=== PATIENT | female | born 2000 | race Two or more races ===

== ENCOUNTER 2021-08-03 11:37 | Emergency (ER) | payer MEDICAID ==
[~2021-08-03] VITALS: Ht 177.8 cm; Wt 74.0 kg
[2021-08-03 11:40] VITALS: BP 105/75
[2021-08-03] MEDS ORDERED: IBUPROFEN 600MG TABLET PO ONE (12:15)
[2021-08-03] MEDS ORDERED: IBUP-2029 MT (12:37)
== END 2021-08-03 13:44 | disposition home or self-care (01) ==
LOC: ER 11:37
DX: S16.1XXA Strain of muscle, fascia and tendon at neck level, initial encounter (principal); X58.XXXA Exposure to other specified factors, initial encounter; Y93.89 Activity, other specified; Y92.89 Other specified places as the place of occurrence of the external cause; Y99.8 Other external cause status
CPT/HCPCS: 81025; 99283

== ENCOUNTER 2023-02-10 03:45 | Emergency (ER) | payer MEDICAID, OTHER ==
[~2023-02-10] VITALS: Ht 165.1 cm; Wt 73.0 kg
[~2023-02-10 03:45] MED LIST: IBUP-2029 MT
[2023-02-10 04:09] VITALS: TEMP 98.1; O2SAT 100
[2023-02-10 05:45] VITALS: BP 121/81; PULSE 80; RESP 16
[2023-02-10] MEDS ORDERED: KETOROLAC 30MG/ML VIAL IV ONE (05:45)
[2023-02-10 07:18] LABS: BASOPHILS % 0.4 % (0.0-2.0); EOSINOPHILS % 0.5 % (0.0-5.0); HEMATOCRIT. 30.5 % (36.0-48.0); HEMOGLOBIN. 9.5 g/dL (12.0-16.0); LYMPHOCYTES % 12.6 % (20.0-50.0); MEAN CORPUSCULAR HEMOGLOBIN 19.2 pg (28.0-32.0); MEAN CORPUSCULAR HGB CONC 31.1 g/dL (31.0-37.0); MEAN CORPUSCULAR VOLUME 61.8 fL (81.0-99.0); MONOCYTES % 4.9 % (2.0-8.0); NEUTROPHILS % 81.6 % (40.0-76.0); PLATELET 356 x1000/uL (130-400); RED BLOOD CELL COUNT 4.94 mill/uL (4.2-5.4); RED CELL DISTRIBUTION WIDTH 21.2 % (11.6-14.6); WHITE BLOOD COUNT 12.5 x1000/uL (4.5-11.0)
[2023-02-10 07:27] LABS: ADD RBC MORPHOLOGY YES; DIFFERENTIAL COMMENT 1
[2023-02-10 08:00] LABS: ANISOCYTOSIS 2+; HYPOCHROMASIA 1+; MICROCYTOSIS 3+; PLATELET ESTIMATE NORMAL
[2023-02-10 08:04] LABS: HCG SCREEN NEGATIVE
[2023-02-10 08:07] LABS: ALANINE AMINOTRANSFERASE 10 IU/L (10-49); ALBUMIN 4.2 g/dL (3.2-4.8); ASPARTATE AMINOTRANSFERASE 18 IU/L (<34); BILIRUBIN TOTAL 0.6 mg/dL (0.1-1.0); CALCIUM 9.5 mg/dL (8.7-10.4); CARBON DIOXIDE 24 mEq/L (21-32); CHLORIDE 106 mEq/L (98-107); CREATININE 0.7 mg/dL (0.6-1.0); GLUCOSE 94 mg/dL (70-105); POTASSIUM 3.8 mEq/L (3.5-5.1); PROTEIN TOTAL 7.2 g/dL (6.0-8.3); SODIUM 138 mEq/L (136-145)
[2023-02-10 08:17] LABS: TROPONIN I HIGH SENSITIVITY < 4 ng/L (3.0-34); UREA NITROGEN BLOOD < 5 mg/dL (9-23)
== END 2023-02-10 08:35 | disposition home or self-care (01) ==
LOC: ER 03:45
DX: R07.9 Chest pain, unspecified (principal); F12.90 Cannabis use, unspecified, uncomplicated
CPT/HCPCS: 36415; 71045; 80053; 81025; 83880; 84484; 84703; 85025; 93005; 99285

== ENCOUNTER 2023-02-15 22:34 | Emergency (ER) | payer OTHER ==
[~2023-02-15] VITALS: Ht 167.6 cm; Wt 82.0 kg
[2023-02-15 22:52] VITALS: O2SAT 100
[2023-02-16] MEDS ORDERED: ACETAMINOPHEN 325MG TABLET PO STA (00:21)
[2023-02-16] MEDS ORDERED: IBUP-2028 MT (02:51)
[2023-02-16 03:10] VITALS: BP 117/73; PULSE 74; RESP 14; TEMP 99.1
== END 2023-02-16 03:21 | disposition home or self-care (01) ==
LOC: ER 22:34
DX: M94.0 Chondrocostal junction syndrome [Tietze] (principal)
CPT/HCPCS: 71045; 81025; 99283

== ENCOUNTER 2023-03-07 00:42 | Emergency (ER) | payer MEDICAID, OTHER ==
[~2023-03-07] VITALS: Ht 180.3 cm; Wt 122.0 kg
[~2023-03-07 00:42] MED LIST changes: +IBUP-2028 MT
[2023-03-07 01:16] VITALS: BP 120/77; PULSE 91; RESP 16; TEMP 98.2; O2SAT 100
[2023-03-07 01:16] LABS: BASOPHILS % 0.4 % (0.0-2.0); EOSINOPHILS % 1.4 % (0.0-5.0); HEMATOCRIT. 31.3 % (36.0-48.0); LYMPHOCYTES % 25.6 % (20.0-50.0); MEAN CORPUSCULAR HEMOGLOBIN 20.3 pg (28.0-32.0); MEAN CORPUSCULAR HGB CONC 31.9 g/dL (31.0-37.0); MEAN CORPUSCULAR VOLUME 63.8 fL (81.0-99.0); MEAN PLATELET VOLUME 9.5 fl (7.4-10.4); MONOCYTES % 8.8 % (2.0-8.0); NEUTROPHILS % 63.8 % (40.0-76.0); PLATELET 366 x1000/uL (130-400); RED CELL DISTRIBUTION WIDTH 22.1 % (11.6-14.6); WHITE BLOOD COUNT 14.3 x1000/uL (4.5-11.0)
[2023-03-07 01:26] LABS: ADD RBC MORPHOLOGY YES; DIFFERENTIAL COMMENT 1
[2023-03-07 01:30] LABS: ALANINE AMINOTRANSFERASE < 7 IU/L (10-49); ALBUMIN 4.1 g/dL (3.2-4.8); ASPARTATE AMINOTRANSFERASE 11 IU/L (<34); BILIRUBIN TOTAL 0.2 mg/dL (0.1-1.0); CALCIUM 9.4 mg/dL (8.7-10.4); CARBON DIOXIDE 28 mEq/L (21-32); CHLORIDE 106 mEq/L (98-107); CREATININE 0.7 mg/dL (0.6-1.0); GLUCOSE 111 mg/dL (70-105); PROTEIN TOTAL 7.4 g/dL (6.0-8.3); SODIUM 140 mEq/L (136-145); UREA NITROGEN BLOOD 7 mg/dL (9-23)
[2023-03-07 01:41] LABS: HCG SCREEN NEGATIVE
[2023-03-07 02:13] LABS: CLARITY URINE CLEAR (CLEAR); COLOR URINE YELLOW (YELLOW); GLUCOSE URINE NEGATIVE (NEGATIVE); KETONES URINE NEGATIVE (NEGATIVE); LEUKOCYTE ESTERASE URINE NEGATIVE (NEGATIVE); NITRITE URINE NEGATIVE (NEGATIVE); OCCULT BLOOD URINE NEGATIVE (NEGATIVE); PROTEIN URINE NEGATIVE (NEGATIVE); SPECIFIC GRAVITY URINE 1.017 (1.005-1.030); UROBILINOGEN URINE 0.2 E.U./dL (0.2-1.0)
[2023-03-07 02:14] LABS: HYPOCHROMASIA 1+; MICROCYTOSIS 1+; PLATELET ESTIMATE NORMAL
== END 2023-03-07 08:07 | disposition home or self-care (01) ==
LOC: ER 00:42
DX: R10.12 Left upper quadrant pain (principal)
CPT/HCPCS: 36415; 80053; 81003; 81025; 84703; 85025; 99283

== ENCOUNTER 2023-03-15 08:01 | Emergency (ER) | payer OTHER ==
[~2023-03-15] VITALS: Ht 170.2 cm; Wt 70.0 kg
[2023-03-15 08:03] VITALS: O2SAT 99
[2023-03-15] MEDS ORDERED: ACETAMINOPHEN 325MG TABLET PO ONE (09:00)
[2023-03-15 09:18] LABS: BASOPHILS % 0.7 % (0.0-2.0); EOSINOPHILS % 0.9 % (0.0-5.0); HEMATOCRIT. 32.2 % (36.0-48.0); HEMOGLOBIN. 9.9 g/dL (12.0-16.0); LYMPHOCYTES % 15.4 % (20.0-50.0); MEAN CORPUSCULAR HEMOGLOBIN 19.5 pg (28.0-32.0); MEAN CORPUSCULAR HGB CONC 30.6 g/dL (31.0-37.0); MEAN CORPUSCULAR VOLUME 63.5 fL (81.0-99.0); MEAN PLATELET VOLUME 9.4 fl (7.4-10.4); MONOCYTES % 5.1 % (2.0-8.0); NEUTROPHILS % 77.9 % (40.0-76.0); PLATELET 341 x1000/uL (130-400); RED BLOOD CELL COUNT 5.07 mill/uL (4.2-5.4); RED CELL DISTRIBUTION WIDTH 21.6 % (11.6-14.6); WHITE BLOOD COUNT 12.2 x1000/uL (4.5-11.0)
[2023-03-15 09:31] LABS: ADD RBC MORPHOLOGY YES; DIFFERENTIAL COMMENT 1
[2023-03-15 09:38] LABS: ALANINE AMINOTRANSFERASE < 7 IU/L (10-49); ALBUMIN 4.1 g/dL (3.2-4.8); ASPARTATE AMINOTRANSFERASE 11 IU/L (<34); BILIRUBIN TOTAL 0.4 mg/dL (0.1-1.0); CALCIUM 9.3 mg/dL (8.7-10.4); CARBON DIOXIDE 29 mEq/L (21-32); CHLORIDE 105 mEq/L (98-107); CREATININE 0.6 mg/dL (0.6-1.0); GLUCOSE 99 mg/dL (70-105); POTASSIUM 3.8 mEq/L (3.5-5.1); PROTEIN TOTAL 7.5 g/dL (6.0-8.3); SODIUM 139 mEq/L (136-145); UREA NITROGEN BLOOD 6 mg/dL (9-23)
[2023-03-15 09:42] LABS: HCG SCREEN NEGATIVE
[2023-03-15 09:52] LABS: B-HCG QUANTITATIVE 2 mIU/mL (<3)
[2023-03-15 10:36] LABS: ANISOCYTOSIS 2+; HYPOCHROMASIA 2+; MICROCYTOSIS 2+; PLATELET ESTIMATE NORMAL; TARGET CELLS 1+
[2023-03-15 10:54] LABS: UCG SCREEN NEGATIVE
[2023-03-15 10:55] LABS: CLARITY URINE CLEAR (CLEAR); COLOR URINE YELLOW (YELLOW); GLUCOSE URINE NEGATIVE (NEGATIVE); KETONES URINE NEGATIVE (NEGATIVE); LEUKOCYTE ESTERASE URINE 2+ (NEGATIVE); NITRITE URINE NEGATIVE (NEGATIVE); OCCULT BLOOD URINE NEGATIVE (NEGATIVE); PROTEIN URINE NEGATIVE (NEGATIVE); SPECIFIC GRAVITY URINE 1.009 (1.005-1.030); UROBILINOGEN URINE 0.2 E.U./dL (0.2-1.0)
[2023-03-15 11:15] LABS: SQUAMOUS EPITHELIAL CELL URINE 3+ /lpf (RARE/1+)
[2023-03-15 11:16] LABS: BACTERIA URINE TRACE; RBC URINE NONE SEEN /hpf (0-2)
[2023-03-15 12:07] VITALS: BP 126/76; PULSE 82; RESP 17; TEMP 98.3
[2023-03-19 04:07] LABS: CHLAMYDIA TRACHOMATIS NAA Negative (Negative); NEISSERIA GONORRHOEAE NAA Negative (Negative)
== END 2023-03-15 13:01 | disposition home or self-care (01) ==
LOC: ER 08:13
DX: N83.202 Unspecified ovarian cyst, left side (principal); N39.0 Urinary tract infection, site not specified
CPT/HCPCS: 87491; 87591; 80053; 81003; 81025; 84703; 84702; 85025; 36415; 76830; 76856; 99284; Z7610

== ENCOUNTER 2023-04-11 18:35 | Emergency (ER) | payer OTHER ==
[~2023-04-11] VITALS: Ht 177.8 cm; Wt 113.0 kg
[2023-04-11 18:37] VITALS: BP 145/80; PULSE 108; RESP 20; TEMP 98.9; O2SAT 99
[2023-04-11 20:16] LABS: BASOPHILS % 0.5 % (0.0-2.0); HEMATOCRIT. 33.4 % (36.0-48.0); HEMOGLOBIN. 10.2 g/dL (12.0-16.0); LYMPHOCYTES % 24.1 % (20.0-50.0); MEAN CORPUSCULAR HEMOGLOBIN 19.5 pg (28.0-32.0); MEAN CORPUSCULAR HGB CONC 30.7 g/dL (31.0-37.0); MEAN CORPUSCULAR VOLUME 63.7 fL (81.0-99.0); MEAN PLATELET VOLUME 9.6 fl (7.4-10.4); MONOCYTES % 5.5 % (2.0-8.0); NEUTROPHILS % 68.9 % (40.0-76.0); PLATELET 357 x1000/uL (130-400); RED BLOOD CELL COUNT 5.25 mill/uL (4.2-5.4); RED CELL DISTRIBUTION WIDTH 20.5 % (11.6-14.6); WHITE BLOOD COUNT 18.8 x1000/uL (4.5-11.0)
[2023-04-11 20:18] LABS: ALANINE AMINOTRANSFERASE < 7 IU/L (10-49); ALBUMIN 4.2 g/dL (3.2-4.8); ASPARTATE AMINOTRANSFERASE 10 IU/L (<34); BILIRUBIN TOTAL 0.3 mg/dL (0.1-1.0); CALCIUM 9.4 mg/dL (8.7-10.4); CARBON DIOXIDE 23 mEq/L (21-32); CHLORIDE 103 mEq/L (98-107); CREATININE 0.8 mg/dL (0.6-1.0); GLUCOSE 108 mg/dL (70-105); POTASSIUM 3.8 mEq/L (3.5-5.1); PROTEIN TOTAL 8.1 g/dL (6.0-8.3); SODIUM 135 mEq/L (136-145); UREA NITROGEN BLOOD 10 mg/dL (9-23)
[2023-04-11 20:26] LABS: HCG SCREEN NEGATIVE
[2023-04-11 20:55] LABS: ADD RBC MORPHOLOGY YES; DIFFERENTIAL COMMENT 1
[2023-04-11 21:01] LABS: CLARITY URINE CLOUDY (CLEAR); COLOR URINE YELLOW (YELLOW); GLUCOSE URINE NEGATIVE (NEGATIVE); KETONES URINE TRACE (NEGATIVE); LEUKOCYTE ESTERASE URINE 1+ (NEGATIVE); NITRITE URINE NEGATIVE (NEGATIVE); OCCULT BLOOD URINE NEGATIVE (NEGATIVE); PH URINE 5.5 (4.5-8.0); PROTEIN URINE NEGATIVE (NEGATIVE); SPECIFIC GRAVITY URINE 1.025 (1.005-1.030)
[2023-04-11] MEDS ORDERED: ONDANSETRON 4MG ODT PO STA (21:07)
[2023-04-11] MEDS ORDERED: DICYCLOMINE 10 MG/5 ML ORAL SYR PO STA (21:07)
[2023-04-11] MEDS ORDERED: MAGNESIUM/ALUMINUM HYDROXIDE/SIMETHICONE 30ML UDC PO STA (21:07)
[2023-04-11 21:17] LABS: MICROCYTOSIS 3+; PLATELET ESTIMATE NORMAL
[2023-04-11 21:18] LABS: ANISOCYTOSIS 2+; HYPOCHROMASIA 1+; TARGET CELLS 1+
[2023-04-11 21:27] LABS: BACTERIA URINE 2+; RBC URINE NONE SEEN /hpf (0-2); SQUAMOUS EPITHELIAL CELL URINE 2+ /lpf (RARE/1+)
[2023-04-11] MEDS ORDERED: NITR-87 MT (23:15)
[2023-04-11] MEDS ORDERED: FAMO-135 MT (23:15)
== END 2023-04-11 23:34 | disposition home or self-care (01) ==
LOC: ER 18:35
DX: K29.70 Gastritis, unspecified, without bleeding (principal); N39.0 Urinary tract infection, site not specified; D64.9 Anemia, unspecified
CPT/HCPCS: 99284; 76700; 80053; 81003; 84703; 83690; 85025; 36415; Q0162

== ENCOUNTER 2023-04-16 01:52 | Emergency (ER) | payer OTHER ==
[~2023-04-16] VITALS: Ht 177.8 cm; Wt 87.0 kg
[~2023-04-16 01:52] MED LIST changes: +FAMO-135 MT; +NITR-87 MT
[2023-04-16 02:02] VITALS: O2SAT 100
[2023-04-16 03:07] LABS: CLARITY URINE TURBID (CLEAR); COLOR URINE RED (YELLOW); GLUCOSE URINE NEGATIVE (NEGATIVE); KETONES URINE NEGATIVE (NEGATIVE); LEUKOCYTE ESTERASE URINE 2+ (NEGATIVE); NITRITE URINE NEGATIVE (NEGATIVE); OCCULT BLOOD URINE 3+ (NEGATIVE); PH URINE 5.5 (4.5-8.0); PROTEIN URINE 2+ (NEGATIVE); SPECIFIC GRAVITY URINE 1.019 (1.005-1.030); UROBILINOGEN URINE 0.2 E.U./dL (0.2-1.0)
[2023-04-16 03:14] LABS: BASOPHILS % 0.5 % (0.0-2.0); EOSINOPHILS % 0.5 % (0.0-5.0); HEMOGLOBIN. 9.9 g/dL (12.0-16.0); LYMPHOCYTES % 17.9 % (20.0-50.0); MEAN CORPUSCULAR HEMOGLOBIN 20.1 pg (28.0-32.0); MEAN CORPUSCULAR HGB CONC 31.9 g/dL (31.0-37.0); MEAN PLATELET VOLUME 9.6 fl (7.4-10.4); MONOCYTES % 5.1 % (2.0-8.0); PLATELET 354 x1000/uL (130-400); RED BLOOD CELL COUNT 4.93 mill/uL (4.2-5.4); RED CELL DISTRIBUTION WIDTH 20.3 % (11.6-14.6)
[2023-04-16 03:16] LABS: ADD RBC MORPHOLOGY YES; DIFFERENTIAL COMMENT 1
[2023-04-16 03:27] LABS: ALANINE AMINOTRANSFERASE < 7 IU/L (10-49); ALBUMIN 4.5 g/dL (3.2-4.8); ASPARTATE AMINOTRANSFERASE 10 IU/L (<34); BILIRUBIN TOTAL 0.4 mg/dL (0.1-1.0); CALCIUM 9.6 mg/dL (8.7-10.4); CARBON DIOXIDE 25 mEq/L (21-32); CHLORIDE 106 mEq/L (98-107); CREATININE 0.8 mg/dL (0.6-1.0); GLUCOSE 119 mg/dL (70-105); POTASSIUM 3.8 mEq/L (3.5-5.1); PROTEIN TOTAL 7.6 g/dL (6.0-8.3); SODIUM 139 mEq/L (136-145); UREA NITROGEN BLOOD 6 mg/dL (9-23)
[2023-04-16 03:43] LABS: TROPONIN I HIGH SENSITIVITY < 4 ng/L (3.0-34)
[2023-04-16 03:44] LABS: HYPOCHROMASIA 1+; MICROCYTOSIS 1+; PLATELET ESTIMATE NORMAL
[2023-04-16 03:48] LABS: RBC URINE TNTC /hpf (0-2)
[2023-04-16 03:49] LABS: BACTERIA URINE 1+; SQUAMOUS EPITHELIAL CELL URINE 1+ /lpf (RARE/1+)
[2023-04-16] MEDS ORDERED: KETOROLAC 30MG/ML VIAL IM SCH (09:30)
[2023-04-16 10:00] VITALS: BP 118/78; PULSE 89; RESP 18; TEMP 98.1
== END 2023-04-16 10:01 | disposition home or self-care (01) ==
LOC: ER 01:52
DX: N93.8 Other specified abnormal uterine and vaginal bleeding (principal); I49.9 Cardiac arrhythmia, unspecified
CPT/HCPCS: 80053; 81003; 81025; 85025; 84484; 36415; 71045; 93005; 96372; 99285; J1885; Z7610 ×4

== ENCOUNTER 2023-04-29 05:08 | Emergency (ER) | payer OTHER ==
[~2023-04-29] VITALS: Ht 172.7 cm; Wt 96.0 kg
[2023-04-29 05:11] VITALS: O2SAT 100
[2023-04-29 05:58] LABS: BASOPHILS % 0.4 % (0.0-2.0); EOSINOPHILS % 0.6 % (0.0-5.0); HEMATOCRIT. 30.7 % (36.0-48.0); HEMOGLOBIN. 9.9 g/dL (12.0-16.0); LYMPHOCYTES % 24.3 % (20.0-50.0); MEAN CORPUSCULAR HEMOGLOBIN 20.3 pg (28.0-32.0); MEAN CORPUSCULAR HGB CONC 32.1 g/dL (31.0-37.0); MEAN CORPUSCULAR VOLUME 63.2 fL (81.0-99.0); MEAN PLATELET VOLUME 9.4 fl (7.4-10.4); NEUTROPHILS % 69.7 % (40.0-76.0); PLATELET 409 x1000/uL (130-400); RED BLOOD CELL COUNT 4.86 mill/uL (4.2-5.4); RED CELL DISTRIBUTION WIDTH 19.6 % (11.6-14.6); WHITE BLOOD COUNT 16.6 x1000/uL (4.5-11.0)
[2023-04-29] MEDS: FAMOTIDINE 20MG TABLET PO ONE (06:02)
[2023-04-29] MEDS: MAGNESIUM/ALUMINUM HYDROXIDE/SIMETHICONE 30ML UDC PO ONE (06:02)
[2023-04-29 06:09] LABS: ALANINE AMINOTRANSFERASE < 7 IU/L (10-49); ALBUMIN 4.7 g/dL (3.2-4.8); ASPARTATE AMINOTRANSFERASE 9 IU/L (<34); BILIRUBIN TOTAL 0.5 mg/dL (0.1-1.0); CALCIUM 9.6 mg/dL (8.7-10.4); CARBON DIOXIDE 26 mEq/L (21-32); CHLORIDE 105 mEq/L (98-107); CREATININE 0.8 mg/dL (0.6-1.0); GLUCOSE 116 mg/dL (70-105); POTASSIUM 3.6 mEq/L (3.5-5.1); PROTEIN TOTAL 8.1 g/dL (6.0-8.3); SODIUM 136 mEq/L (136-145); UREA NITROGEN BLOOD 7 mg/dL (9-23)
[2023-04-29 06:11] LABS: HCG SCREEN NEGATIVE
[2023-04-29 06:26] LABS: ADD RBC MORPHOLOGY YES; DIFFERENTIAL COMMENT 1
[2023-04-29 07:34] LABS: TROPONIN I HIGH SENSITIVITY < 4 ng/L (3.0-34)
[2023-04-29 08:26] VITALS: BP 118/80; PULSE 88; RESP 18; TEMP 98.7
[2023-04-29 13:07] LABS: ANISOCYTOSIS 2+; MICROCYTOSIS 4+; PLATELET ESTIMATE SLIGHTLY INCREASED
== END 2023-04-29 08:28 | disposition home or self-care (01) ==
LOC: ER 05:08
DX: R07.89 Other chest pain (principal); Z98.890 Other specified postprocedural states
CPT/HCPCS: 36415; 71045; 80053; 81025; 84484; 84703; 85025; 85379; 99284

== ENCOUNTER 2023-05-17 03:09 | Emergency (ER) | payer MEDICAID ==
[~2023-05-17] VITALS: Ht 180.3 cm; Wt 105.0 kg
[2023-05-17 03:10] VITALS: PULSE 120; RESP 16
[2023-05-17 03:11] VITALS: BP 130/90; TEMP 98.7; O2SAT 100
[2023-05-17 04:03] LABS: CLARITY URINE CLEAR (CLEAR); COLOR URINE YELLOW (YELLOW)
[2023-05-17 04:04] LABS: GLUCOSE URINE NEGATIVE (NEGATIVE); KETONES URINE NEGATIVE (NEGATIVE); LEUKOCYTE ESTERASE URINE NEGATIVE (NEGATIVE); NITRITE URINE NEGATIVE (NEGATIVE); OCCULT BLOOD URINE NEGATIVE (NEGATIVE); PH URINE 6.5 (4.5-8.0); PROTEIN URINE NEGATIVE (NEGATIVE)
[2023-05-17] MEDS ORDERED: KETOROLAC 30MG/ML VIAL IV STA (09:04)
[2023-05-17] MEDS ORDERED: MORPHINE SULFATE 4 MG/ML CPJ (NOT FOR IM USE) IV STA (09:04)
[2023-05-17] MEDS ORDERED: ONDANSETRON HCL 4MG/2ML INJ IV ONE (09:15)
[2023-05-17] MEDS: SODIUM CHLORIDE 0.9% 1,000 ML IV ONE (09:52)
[2023-05-17 10:31] LABS: BASOPHILS % 0.3 % (0.0-2.0); HEMATOCRIT. 28.5 % (36.0-48.0); HEMOGLOBIN. 9.2 g/dL (12.0-16.0); LYMPHOCYTES % 24.3 % (20.0-50.0); MEAN CORPUSCULAR HEMOGLOBIN 20.1 pg (28.0-32.0); MEAN CORPUSCULAR HGB CONC 32.1 g/dL (31.0-37.0); MEAN CORPUSCULAR VOLUME 62.6 fL (81.0-99.0); MONOCYTES % 5.6 % (2.0-8.0); NEUTROPHILS % 68.8 % (40.0-76.0); PLATELET 333 x1000/uL (130-400); RED BLOOD CELL COUNT 4.56 mill/uL (4.2-5.4); RED CELL DISTRIBUTION WIDTH 18.9 % (11.6-14.6); WHITE BLOOD COUNT 11.5 x1000/uL (4.5-11.0)
[2023-05-17 10:32] LABS: ADD RBC MORPHOLOGY YES; DIFFERENTIAL COMMENT 1
[2023-05-17 10:40] LABS: PROTHROMBIN TIME 10.9 sec (9.6-11.0)
[2023-05-17 10:42] LABS: HCG SCREEN NEGATIVE
[2023-05-17 10:48] LABS: ALANINE AMINOTRANSFERASE < 7 IU/L (10-49); ALBUMIN 4.3 g/dL (3.2-4.8); ASPARTATE AMINOTRANSFERASE 14 IU/L (<34); BILIRUBIN TOTAL 0.5 mg/dL (0.1-1.0); CALCIUM 9.4 mg/dL (8.7-10.4); CARBON DIOXIDE 26 mEq/L (21-32); CHLORIDE 103 mEq/L (98-107); CREATININE 0.6 mg/dL (0.6-1.0); GLUCOSE 91 mg/dL (70-105); POTASSIUM 3.6 mEq/L (3.5-5.1); PROTEIN TOTAL 7.2 g/dL (6.0-8.3); SODIUM 138 mEq/L (136-145); UREA NITROGEN BLOOD 7 mg/dL (9-23)
[2023-05-17 10:54] LABS: ANISOCYTOSIS 2+; MICROCYTOSIS 4+; PLATELET ESTIMATE NORMAL; TARGET CELLS 1+
[2023-05-17] MEDS ORDERED: NAPR-681 MT (11:16)
[2023-05-17] MEDS ORDERED: ONDA4TAB11 PO (11:19)
== END 2023-05-17 11:44 | disposition home or self-care (01) ==
LOC: ER 03:09
DX: R10.9 Unspecified abdominal pain (principal); R59.0 Localized enlarged lymph nodes; Z98.890 Other specified postprocedural states
CPT/HCPCS: 80053; 81003; 81025; 84703; 83690; 85025; 85610; 36415; 74176; 96360; 99284; J7030; Z7610 ×2

== ENCOUNTER 2023-05-27 01:48 | Emergency (ER) | payer MEDICAID, OTHER ==
[~2023-05-27] VITALS: Ht 180.3 cm; Wt 86.0 kg
[~2023-05-27 01:48] MED LIST changes: +NAPR-681 MT; +ONDA4TAB11 PO
[2023-05-27 01:58] VITALS: O2SAT 100
[2023-05-27] MEDS: GUAIFENESIN 600MG ER TABLET PO ONE (03:46)
[2023-05-27] MEDS: ACETAMINOPHEN 325MG TABLET PO ONE (03:46)
[2023-05-27 04:10] VITALS: PULSE 84; RESP 16
[2023-05-27] MEDS: IPRATROPIUM/ALBUTEROL 0.5-3(2.5)MG/3ML NEB HHN ONE (04:10)
[2023-05-27] MEDS ORDERED: GUAI600T26 MT (06:20)
[2023-05-27] MEDS ORDERED: ACET-2708 MT (06:20)
[2023-05-27] MEDS ORDERED: ALBU6.7H15 INH (06:20)
[2023-05-27 06:40] VITALS: BP 111/69; PULSE 102; TEMP 97.7
[2023-05-27] MEDS ORDERED: NITR-87 MT (13:12)
[2023-05-27] MEDS ORDERED: TOPUD MT (13:12)
[2023-05-27] MEDS ORDERED: IBUP-1523 MT (13:12)
== END 2023-05-27 06:42 | disposition home or self-care (01) ==
LOC: ER 01:48
DX: B34.9 Viral infection, unspecified (principal); Z00.00 Encounter for general adult medical examination without abnormal findings; Z98.890 Other specified postprocedural states
CPT/HCPCS: 94640; 85379; 36415; 71045; 93005; 99285; Z7610 ×2

== ENCOUNTER 2023-05-27 08:37 | Emergency (ER) | payer OTHER ==
[~2023-05-27] VITALS: Ht 172.7 cm; Wt 98.0 kg
[~2023-05-27 08:37] MED LIST changes: +ACET-2708 MT; +ALBU6.7H15 INH; +GUAI600T26 MT
[2023-05-27 08:39] VITALS: O2SAT 100
[2023-05-27 09:19] LABS: BASOPHILS % 0.7 % (0.0-2.0); EOSINOPHILS % 0.4 % (0.0-5.0); HEMATOCRIT. 32.4 % (36.0-48.0); HEMOGLOBIN. 10.3 g/dL (12.0-16.0); LYMPHOCYTES % 14.7 % (20.0-50.0); MEAN CORPUSCULAR HEMOGLOBIN 19.7 pg (28.0-32.0); MEAN CORPUSCULAR HGB CONC 31.7 g/dL (31.0-37.0); MEAN CORPUSCULAR VOLUME 62.1 fL (81.0-99.0); MEAN PLATELET VOLUME 9.6 fl (7.4-10.4); MONOCYTES % 5.7 % (2.0-8.0); NEUTROPHILS % 78.5 % (40.0-76.0); PLATELET 346 x1000/uL (130-400); RED BLOOD CELL COUNT 5.23 mill/uL (4.2-5.4); RED CELL DISTRIBUTION WIDTH 18.6 % (11.6-14.6); WHITE BLOOD COUNT 16.1 x1000/uL (4.5-11.0)
[2023-05-27 09:22] LABS: ADD RBC MORPHOLOGY YES; DIFFERENTIAL COMMENT 1
[2023-05-27 09:35] LABS: ALANINE AMINOTRANSFERASE 8 IU/L (10-49); ASPARTATE AMINOTRANSFERASE 11 IU/L (<34); BILIRUBIN TOTAL 0.5 mg/dL (0.1-1.0); CALCIUM 9.7 mg/dL (8.7-10.4); CARBON DIOXIDE 23 mEq/L (21-32); CHLORIDE 103 mEq/L (98-107); CREATININE 0.7 mg/dL (0.6-1.0); GLUCOSE 113 mg/dL (70-105); POTASSIUM 3.3 mEq/L (3.5-5.1); PROTEIN TOTAL 8.7 g/dL (6.0-8.3); SODIUM 136 mEq/L (136-145); UREA NITROGEN BLOOD 9 mg/dL (9-23)
[2023-05-27 09:42] LABS: TROPONIN I HIGH SENSITIVITY < 4 ng/L (3.0-34)
[2023-05-27] MEDS: MAGNESIUM/ALUMINUM HYDROXIDE/SIMETHICONE 30ML UDC PO ONE (10:30)
[2023-05-27] MEDS: PANTOPRAZOLE 40MG DR TABLET PO ONE (10:30)
[2023-05-27] MEDS: ACETAMINOPHEN 325MG TABLET PO ONE (10:30)
[2023-05-27 10:41] LABS: PLATELET ESTIMATE NORMAL
[2023-05-27 10:42] LABS: ANISOCYTOSIS 2+; MICROCYTOSIS 2+
[2023-05-27] MEDS: POTASSIUM CHLORIDE 20MEQ/PACKET PO ONE (12:10)
[2023-05-27 12:55] LABS: CLARITY URINE CLOUDY (CLEAR); COLOR URINE YELLOW (YELLOW); GLUCOSE URINE NEGATIVE (NEGATIVE); KETONES URINE NEGATIVE (NEGATIVE); LEUKOCYTE ESTERASE URINE TRACE (NEGATIVE); NITRITE URINE NEGATIVE (NEGATIVE); OCCULT BLOOD URINE NEGATIVE (NEGATIVE); PH URINE 6.5 (4.5-8.0); PROTEIN URINE NEGATIVE (NEGATIVE); SPECIFIC GRAVITY URINE 1.014 (1.005-1.030); UROBILINOGEN URINE 0.2 E.U./dL (0.2-1.0)
[2023-05-27 13:05] LABS: BACTERIA URINE 1+; SQUAMOUS EPITHELIAL CELL URINE 3+ /lpf (RARE/1+); YEAST URINE NONE SEEN
[2023-05-27] MEDS ORDERED: IBUP-1523 MT (13:12)
[2023-05-27] MEDS ORDERED: TOPUD MT (13:12)
[2023-05-27] MEDS ORDERED: NITR-87 MT (13:12)
[2023-05-27 13:41] VITALS: BP 126/66; PULSE 103; RESP 16
== END 2023-05-27 13:42 | disposition home or self-care (01) ==
LOC: ER 08:43
DX: R07.89 Other chest pain (principal); N39.0 Urinary tract infection, site not specified; Z79.899 Other long term (current) drug therapy; Z98.890 Other specified postprocedural states
CPT/HCPCS: 36415; 71045; 80053; 81003; 83880; 84484; 85025; 85379; 93005; 99285

== ENCOUNTER 2023-07-13 15:53 | Emergency (ER) | payer MEDICAID ==
[~2023-07-13] VITALS: Ht 180.3 cm; Wt 100.0 kg
[~2023-07-13 15:53] MED LIST changes: -ACET-2708 MT; -ALBU6.7H15 INH; -FAMO-135 MT; -GUAI600T26 MT; -IBUP-2028 MT; -IBUP-2029 MT; -NAPR-681 MT; -NITR-87 MT; -ONDA4TAB11 PO; +PANT40TA51 MT
[2023-07-13 15:56] VITALS: BP 129/75; TEMP 98.9; O2SAT 100
[2023-07-13 18:25] LABS: BASOPHILS % 0.8 % (0.0-2.0); EOSINOPHILS % 0.7 % (0.0-5.0); HEMOGLOBIN. 10.2 g/dL (12.0-16.0); LYMPHOCYTES % 18.2 % (20.0-50.0); MEAN CORPUSCULAR HEMOGLOBIN 20.7 pg (28.0-32.0); MEAN CORPUSCULAR HGB CONC 31.8 g/dL (31.0-37.0); MEAN PLATELET VOLUME 9.6 fl (7.4-10.4); MONOCYTES % 6.1 % (2.0-8.0); NEUTROPHILS % 74.2 % (40.0-76.0); PLATELET 397 x1000/uL (130-400); RED BLOOD CELL COUNT 4.92 mill/uL (4.2-5.4); RED CELL DISTRIBUTION WIDTH 25.8 % (11.6-14.6)
[2023-07-13 18:29] LABS: CHLORIDE 103 mEq/L (98-107); SODIUM 138 mEq/L (136-145)
[2023-07-13 18:30] LABS: ADD RBC MORPHOLOGY YES; CARBON DIOXIDE 29 mEq/L (21-32); DIFFERENTIAL COMMENT 1
[2023-07-13 18:31] LABS: CALCIUM 9.4 mg/dL (8.7-10.4)
[2023-07-13 18:35] LABS: CREATININE 0.8 mg/dL (0.6-1.0)
[2023-07-13 18:36] LABS: GLUCOSE 94 mg/dL (70-105); UREA NITROGEN BLOOD 7 mg/dL (9-23)
[2023-07-13 18:37] LABS: ALANINE AMINOTRANSFERASE < 7 IU/L (10-49); ALBUMIN 4.4 g/dL (3.2-4.8); ASPARTATE AMINOTRANSFERASE 12 IU/L (<34)
[2023-07-13 18:38] LABS: BILIRUBIN TOTAL 0.3 mg/dL (0.1-1.0); PROTEIN TOTAL 8.1 g/dL (6.0-8.3)
[2023-07-13 18:47] LABS: ANISOCYTOSIS 3+; HYPOCHROMASIA 2+; MICROCYTOSIS 3+; PLATELET ESTIMATE NORMAL
[2023-07-13] MEDS: KETOROLAC 15MG/ML VIAL IM ONE (18:58)
[2023-07-13 19:34] LABS: CLARITY URINE CLEAR (CLEAR); COLOR URINE YELLOW (YELLOW); GLUCOSE URINE NEGATIVE (NEGATIVE); KETONES URINE NEGATIVE (NEGATIVE); LEUKOCYTE ESTERASE URINE NEGATIVE (NEGATIVE); NITRITE URINE NEGATIVE (NEGATIVE); OCCULT BLOOD URINE NEGATIVE (NEGATIVE); PROTEIN URINE NEGATIVE (NEGATIVE); SPECIFIC GRAVITY URINE 1.015 (1.005-1.030); UROBILINOGEN URINE 0.2 E.U./dL (0.2-1.0)
[2023-07-13 19:37] LABS: HCG SCREEN NEGATIVE
[2023-07-13 19:44] VITALS: PULSE 98; RESP 16
[2023-07-14] MEDS ORDERED: BECL10.6 INH (08:43)
[2023-07-14] MEDS ORDERED: TOPUD PO (08:43)
== END 2023-07-13 19:46 | disposition home or self-care (01) ==
LOC: ER 15:53
DX: R51.9 Headache, unspecified (principal); R42 Dizziness and giddiness; D64.9 Anemia, unspecified
CPT/HCPCS: 80053; 81003; 81025; 84703; 85025; 36415; 93005; 96372; 99284; J1885; Z7610

== ENCOUNTER 2023-07-14 04:58 | Emergency (ER) | payer MEDICAID ==
[~2023-07-14] VITALS: Ht 180.3 cm; Wt 100.0 kg
[2023-07-14 05:04] VITALS: PULSE 107
[2023-07-14 05:08] VITALS: BP 123/69; RESP 12; O2SAT 100
[2023-07-14 05:31] LABS: CLARITY URINE CLEAR (CLEAR); COLOR URINE YELLOW (YELLOW); GLUCOSE URINE NEGATIVE (NEGATIVE); KETONES URINE NEGATIVE (NEGATIVE); LEUKOCYTE ESTERASE URINE NEGATIVE (NEGATIVE); NITRITE URINE NEGATIVE (NEGATIVE); OCCULT BLOOD URINE NEGATIVE (NEGATIVE); PH URINE 5.5 (4.5-8.0); PROTEIN URINE NEGATIVE (NEGATIVE); SPECIFIC GRAVITY URINE 1.017 (1.005-1.030); UROBILINOGEN URINE 0.2 E.U./dL (0.2-1.0)
[2023-07-14 05:42] LABS: BASOPHILS % 0.3 % (0.0-2.0); EOSINOPHILS % 0.8 % (0.0-5.0); HEMATOCRIT. 32.6 % (36.0-48.0); HEMOGLOBIN. 10.3 g/dL (12.0-16.0); LYMPHOCYTES % 19.2 % (20.0-50.0); MEAN CORPUSCULAR HEMOGLOBIN 20.6 pg (28.0-32.0); MEAN CORPUSCULAR HGB CONC 31.6 g/dL (31.0-37.0); MEAN CORPUSCULAR VOLUME 65.2 fL (81.0-99.0); MEAN PLATELET VOLUME 9.6 fl (7.4-10.4); MONOCYTES % 7.7 % (2.0-8.0); PLATELET 379 x1000/uL (130-400); RED BLOOD CELL COUNT 4.99 mill/uL (4.2-5.4); WHITE BLOOD COUNT 16.5 x1000/uL (4.5-11.0)
[2023-07-14 05:47] LABS: CHLORIDE 105 mEq/L (98-107); POTASSIUM 3.6 mEq/L (3.5-5.1); SODIUM 140 mEq/L (136-145)
[2023-07-14 05:48] LABS: CALCIUM 9.2 mg/dL (8.7-10.4); CARBON DIOXIDE 27 mEq/L (21-32)
[2023-07-14 05:53] LABS: CREATININE 0.9 mg/dL (0.6-1.0); GLUCOSE 125 mg/dL (70-105); UREA NITROGEN BLOOD 8 mg/dL (9-23)
[2023-07-14 05:55] LABS: ALANINE AMINOTRANSFERASE 7 IU/L (10-49); ALBUMIN 4.3 g/dL (3.2-4.8); ASPARTATE AMINOTRANSFERASE 11 IU/L (<34)
[2023-07-14 05:56] LABS: BILIRUBIN TOTAL 0.5 mg/dL (0.1-1.0); PROTEIN TOTAL 7.8 g/dL (6.0-8.3)
[2023-07-14 05:57] LABS: DIFFERENTIAL COMMENT 1
[2023-07-14 06:13] LABS: TROPONIN I HIGH SENSITIVITY < 4 ng/L (3.0-34)
[2023-07-14 06:19] LABS: HCG SCREEN NEGATIVE
[2023-07-14] MEDS ORDERED: ALBUTEROL (0.083%) 2.5MG/3ML NEB HHN STA (07:52)
[2023-07-14 08:00] VITALS: TEMP 98.4
[2023-07-14] MEDS: ACETAMINOPHEN 325MG TABLET PO ONE (08:00)
[2023-07-14] MEDS ORDERED: TOPUD PO (08:43)
[2023-07-14] MEDS ORDERED: BECL10.6 INH (08:43)
[2023-07-14] MEDS ORDERED: IOHEXOL-350 100 ML BOTTLE ONE (09:04)
== END 2023-07-14 09:14 | disposition home or self-care (01) ==
LOC: ER 05:22
DX: B34.9 Viral infection, unspecified (principal); D64.9 Anemia, unspecified; F19.90 Other psychoactive substance use, unspecified, uncomplicated
CPT/HCPCS: 80053; 81003; 81025; 84703; 85025; 84484; 36415; 71045; 71275; 93005; 99285; Q9967; Z7610 ×3

== ENCOUNTER 2023-07-22 03:52 | Emergency (ER) | payer MEDICAID ==
[~2023-07-22] VITALS: Ht 180.3 cm; Wt 100.0 kg
[~2023-07-22 03:52] MED LIST changes: +BECL10.6 INH; +TOPUD PO
[2023-07-22 04:02] VITALS: O2SAT 99
[2023-07-22 04:27] LABS: HEMATOCRIT. 34.2 % (36.0-48.0); MEAN CORPUSCULAR HEMOGLOBIN 21.5 pg (28.0-32.0); MEAN CORPUSCULAR HGB CONC 32.2 g/dL (31.0-37.0); MEAN CORPUSCULAR VOLUME 66.7 fL (81.0-99.0); MEAN PLATELET VOLUME 9.2 fl (7.4-10.4); PLATELET 326 x1000/uL (130-400); RED BLOOD CELL COUNT 5.13 mill/uL (4.2-5.4); RED CELL DISTRIBUTION WIDTH 25.7 % (11.6-14.6); WHITE BLOOD COUNT 17.9 x1000/uL (4.5-11.0)
[2023-07-22 04:32] LABS: DIFFERENTIAL COMMENT 1
[2023-07-22 04:41] LABS: CHLORIDE 108 mEq/L (98-107); POTASSIUM 3.8 mEq/L (3.5-5.1); SODIUM 138 mEq/L (136-145)
[2023-07-22 04:42] LABS: CALCIUM 8.8 mg/dL (8.7-10.4); CARBON DIOXIDE 24 mEq/L (21-32)
[2023-07-22 04:42] LABS: CLARITY URINE CLEAR (CLEAR); COLOR URINE YELLOW (YELLOW); GLUCOSE URINE NEGATIVE (NEGATIVE); KETONES URINE NEGATIVE (NEGATIVE); LEUKOCYTE ESTERASE URINE TRACE (NEGATIVE); NITRITE URINE NEGATIVE (NEGATIVE); OCCULT BLOOD URINE NEGATIVE (NEGATIVE); PROTEIN URINE NEGATIVE (NEGATIVE); SPECIFIC GRAVITY URINE 1.017 (1.005-1.030)
[2023-07-22 04:47] LABS: CREATININE 0.9 mg/dL (0.6-1.0); GLUCOSE 104 mg/dL (70-105); UREA NITROGEN BLOOD 6 mg/dL (9-23)
[2023-07-22 04:49] LABS: ALANINE AMINOTRANSFERASE < 7 IU/L (10-49); ALBUMIN 4.5 g/dL (3.2-4.8); ASPARTATE AMINOTRANSFERASE 10 IU/L (<34); BILIRUBIN TOTAL 0.5 mg/dL (0.1-1.0); PROTEIN TOTAL 7.9 g/dL (6.0-8.3)
[2023-07-22 04:50] LABS: TROPONIN I HIGH SENSITIVITY < 4 ng/L (3.0-34)
[2023-07-22] MEDS ORDERED: IBUP-2029 MT (06:13)
[2023-07-22] MEDS: FAMOTIDINE 20MG TABLET PO ONE (06:44)
[2023-07-22] MEDS: ONDANSETRON 4MG ODT PO STA (06:44)
[2023-07-22 06:45] VITALS: BP 122/67; PULSE 99; RESP 17; TEMP 100
[2023-07-22] MEDS: MAGNESIUM/ALUMINUM HYDROXIDE/SIMETHICONE 30ML UDC PO STA (06:45)
[2023-07-22] MEDS: DICYCLOMINE 10 MG/5 ML ORAL SYR PO STA (06:45)
[2023-07-22 07:12] LABS: RBC URINE 0-2 /hpf (0-2); SQUAMOUS EPITHELIAL CELL URINE NONE SEEN /lpf (RARE/1+); WBC URINE 0-2 /hpf (0-2)
[2023-07-22 07:14] LABS: BACTERIA URINE TRACE
[2023-07-22 08:35] LABS: PLATELET ESTIMATE NORMAL
[2023-07-22 08:36] LABS: HYPOCHROMASIA 1+; MICROCYTOSIS 2+
== END 2023-07-22 06:46 | disposition home or self-care (01) ==
LOC: ER 03:52
DX: R07.89 Other chest pain (principal); F19.90 Other psychoactive substance use, unspecified, uncomplicated; D64.9 Anemia, unspecified; Z98.890 Other specified postprocedural states
CPT/HCPCS: 99285; 71045; 80053; 81003; 81025; 85025; 84484; 36415; 93005; Q0162

== ENCOUNTER 2023-08-04 16:43 | Emergency (ER) | payer MEDICAID ==
[~2023-08-04] VITALS: Ht 180.3 cm; Wt 99.7 kg
[~2023-08-04 16:43] MED LIST changes: +IBUP-2029 MT
[2023-08-04 17:02] VITALS: O2SAT 100
[2023-08-04] MEDS ORDERED: MAGNESIUM/ALUMINUM HYDROXIDE/SIMETHICONE 30ML UDC PO STA (18:34)
[2023-08-04 18:36] LABS: BASOPHILS % 0.5 % (0.0-2.0); EOSINOPHILS % 0.9 % (0.0-5.0); HEMATOCRIT 33.2 % (36.0-48.0); HEMATOCRIT. 33.2 % (36.0-48.0); LYMPHOCYTES % 20.7 % (20.0-50.0); MEAN CORPUSCULAR HEMOGLOBIN 22.1 pg (28.0-32.0); MEAN CORPUSCULAR HGB CONC 33.1 g/dL (31.0-37.0); MEAN CORPUSCULAR VOLUME 66.8 fL (81.0-99.0); MEAN PLATELET VOLUME 9.2 fl (7.4-10.4); MONOCYTES % 5.3 % (2.0-8.0); NEUTROPHILS % 72.6 % (40.0-76.0); PLATELET 364 x1000/uL (130-400); RED BLOOD CELL COUNT 4.98 mill/uL (4.2-5.4); RED CELL DISTRIBUTION WIDTH 25.3 % (11.6-14.6); WHITE BLOOD COUNT 14.3 x1000/uL (4.5-11.0)
[2023-08-04 18:39] LABS: ADD RBC MORPHOLOGY YES; DIFFERENTIAL COMMENT 1
[2023-08-04 18:42] LABS: CHLORIDE 108 mEq/L (98-107); POTASSIUM 3.8 mEq/L (3.5-5.1); SODIUM 136 mEq/L (136-145)
[2023-08-04 18:43] LABS: CALCIUM 9.9 mg/dL (8.7-10.4); CARBON DIOXIDE 27 mEq/L (21-32)
[2023-08-04] MEDS: VISCOUS LIDOCAINE 2% 15 ML UDC PO NR (18:45)
[2023-08-04] MEDS ORDERED: FAMOTIDINE 20MG TABLET PO ONE (18:45)
[2023-08-04 18:46] LABS: HCG SCREEN NEGATIVE
[2023-08-04 18:48] LABS: CREATININE 0.8 mg/dL (0.6-1.0); GLUCOSE 86 mg/dL (70-105); UREA NITROGEN BLOOD 7 mg/dL (9-23)
[2023-08-04 18:50] LABS: ALANINE AMINOTRANSFERASE < 7 IU/L (10-49); ALBUMIN 4.5 g/dL (3.2-4.8); ASPARTATE AMINOTRANSFERASE 11 IU/L (<34)
[2023-08-04 18:51] LABS: BILIRUBIN DIRECT 0.1 mg/dL (<=3.0); BILIRUBIN TOTAL 0.4 mg/dL (0.1-1.0); PROTEIN TOTAL 7.8 g/dL (6.0-8.3)
[2023-08-04 19:03] LABS: ANISOCYTOSIS 3+; HYPOCHROMASIA 1+; MICROCYTOSIS 3+
[2023-08-04 19:06] LABS: PLATELET ESTIMATE NORMAL
[2023-08-04 22:01] LABS: TROPONIN I HIGH SENSITIVITY < 4 ng/L (3.0-34)
[2023-08-04] MEDS: MAGNESIUM/ALUMINUM HYDROXIDE/SIMETHICONE 30ML UDC PO NR (22:03)
[2023-08-04] MEDS: FAMOTIDINE 20MG TABLET PO NR (22:03)
[2023-08-04] MEDS ORDERED: IBUP-2028 MT (22:17)
[2023-08-04 22:27] VITALS: BP 131/77; PULSE 98; RESP 18; TEMP 98.6
== END 2023-08-04 22:29 | disposition home or self-care (01) ==
LOC: ER 16:43
DX: R07.9 Chest pain, unspecified (principal); F19.90 Other psychoactive substance use, unspecified, uncomplicated; D64.9 Anemia, unspecified; Z98.890 Other specified postprocedural states
CPT/HCPCS: 36415; 71046; 80048; 80076; 83880; 84484; 84703; 85025; 85027; 93005; 99285

== ENCOUNTER 2023-08-06 12:01 | Emergency (ER) | payer MEDICAID ==
[~2023-08-06] VITALS: Ht 180.3 cm; Wt 99.8 kg
[~2023-08-06 12:01] MED LIST changes: +IBUP-2028 MT
[2023-08-06 12:06] VITALS: BP 106/71; O2SAT 100
[2023-08-06 13:14] LABS: CHLORIDE 104 mEq/L (98-107); POTASSIUM 3.8 mEq/L (3.5-5.1); SODIUM 141 mEq/L (136-145)
[2023-08-06 13:16] LABS: CALCIUM 10.2 mg/dL (8.7-10.4); CARBON DIOXIDE 27 mEq/L (21-32)
[2023-08-06 13:21] LABS: BASOPHILS % 0.7 % (0.0-2.0); CREATININE 0.8 mg/dL (0.6-1.0); GLUCOSE 93 mg/dL (70-105); HEMATOCRIT. 33.9 % (36.0-48.0); HEMOGLOBIN. 11.3 g/dL (12.0-16.0); LYMPHOCYTES % 19.1 % (20.0-50.0); MEAN CORPUSCULAR HEMOGLOBIN 22.4 pg (28.0-32.0); MEAN CORPUSCULAR HGB CONC 33.3 g/dL (31.0-37.0); MEAN CORPUSCULAR VOLUME 67.2 fL (81.0-99.0); MEAN PLATELET VOLUME 10.1 fl (7.4-10.4); MONOCYTES % 5.7 % (2.0-8.0); NEUTROPHILS % 73.5 % (40.0-76.0); PLATELET 338 x1000/uL (130-400); RED BLOOD CELL COUNT 5.04 mill/uL (4.2-5.4); RED CELL DISTRIBUTION WIDTH 25.8 % (11.6-14.6); UREA NITROGEN BLOOD 8 mg/dL (9-23); WHITE BLOOD COUNT 12.7 x1000/uL (4.5-11.0)
[2023-08-06 13:23] LABS: TROPONIN I HIGH SENSITIVITY < 4 ng/L (3.0-34)
[2023-08-06 13:26] LABS: ADD RBC MORPHOLOGY YES; DIFFERENTIAL COMMENT 1
[2023-08-06 13:47] LABS: ANISOCYTOSIS 3+; PLATELET ESTIMATE NORMAL
[2023-08-06 13:48] LABS: TARGET CELLS 1+
[2023-08-06 13:49] LABS: MICROCYTOSIS 2+
[2023-08-06 15:19] VITALS: PULSE 103; RESP 16; TEMP 96.6
== END 2023-08-06 15:20 | disposition home or self-care (01) ==
LOC: ER 12:01
DX: R00.2 Palpitations (principal)
CPT/HCPCS: 36415; 80048; 84484; 85025; 85379; 93005; 99284

== ENCOUNTER 2023-08-13 05:36 | Emergency (ER) | payer MEDICAID ==
[~2023-08-13] VITALS: Ht 180.3 cm; Wt 101.0 kg
[2023-08-13 05:47] VITALS: O2SAT 100
[2023-08-13] MEDS ORDERED: ACETAMINOPHEN 325MG TABLET PO STA (06:33)
[2023-08-13 07:28] LABS: CHLORIDE 105 mEq/L (98-107); POTASSIUM 3.7 mEq/L (3.5-5.1); SODIUM 137 mEq/L (136-145)
[2023-08-13 07:29] LABS: BASOPHILS % 0.5 % (0.0-2.0); CARBON DIOXIDE 25 mEq/L (21-32); HEMATOCRIT. 34.1 % (36.0-48.0); HEMOGLOBIN. 11.2 g/dL (12.0-16.0); LYMPHOCYTES % 15.3 % (20.0-50.0); MEAN CORPUSCULAR HEMOGLOBIN 22.6 pg (28.0-32.0); MEAN CORPUSCULAR HGB CONC 32.8 g/dL (31.0-37.0); MEAN CORPUSCULAR VOLUME 68.9 fL (81.0-99.0); MEAN PLATELET VOLUME 9.4 fl (7.4-10.4); MONOCYTES % 6.6 % (2.0-8.0); NEUTROPHILS % 76.6 % (40.0-76.0); PLATELET 320 x1000/uL (130-400); RED BLOOD CELL COUNT 4.94 mill/uL (4.2-5.4); RED CELL DISTRIBUTION WIDTH 24.7 % (11.6-14.6); WHITE BLOOD COUNT 13.5 x1000/uL (4.5-11.0)
[2023-08-13 07:30] LABS: CALCIUM 9.2 mg/dL (8.7-10.4)
[2023-08-13 07:33] LABS: ADD RBC MORPHOLOGY YES; DIFFERENTIAL COMMENT 1
[2023-08-13 07:34] LABS: CREATININE 0.9 mg/dL (0.6-1.0); GLUCOSE 139 mg/dL (70-105); UREA NITROGEN BLOOD 7 mg/dL (9-23)
[2023-08-13 07:37] LABS: INR 0.9; PROTHROMBIN TIME 10.4 sec (9.6-11.0)
[2023-08-13 07:38] LABS: HCG SCREEN NEGATIVE
[2023-08-13] MEDS: ACETAMINOPHEN 325MG TABLET PO SCH (08:56)
[2023-08-13] MEDS: SODIUM CHLORIDE 0.9% 1,000 ML IV ONE (08:56)
[2023-08-13 09:18] LABS: CLARITY URINE CLEAR (CLEAR); COLOR URINE YELLOW (YELLOW); GLUCOSE URINE NEGATIVE (NEGATIVE); KETONES URINE NEGATIVE (NEGATIVE); LEUKOCYTE ESTERASE URINE NEGATIVE (NEGATIVE); NITRITE URINE NEGATIVE (NEGATIVE); OCCULT BLOOD URINE NEGATIVE (NEGATIVE); PH URINE 6.5 (4.5-8.0); PROTEIN URINE NEGATIVE (NEGATIVE); SPECIFIC GRAVITY URINE 1.013 (1.005-1.030)
[2023-08-13 11:00] VITALS: BP 135/66; PULSE 85; RESP 16; TEMP 98.3
[2023-08-13 11:00] LABS: ANISOCYTOSIS 3+; MICROCYTOSIS 1+; PLATELET ESTIMATE NORMAL
== END 2023-08-13 11:02 | disposition home or self-care (01) ==
LOC: ER 05:36
DX: R10.30 Lower abdominal pain, unspecified (principal); J45.909 Unspecified asthma, uncomplicated
CPT/HCPCS: 80048; 81003; 84703; 85025; 85610; 87086; 36415; 99283; J7030; Z7610

== ENCOUNTER 2023-08-28 03:24 | Emergency (ER) | payer MEDICAID, OTHER ==
[~2023-08-28] VITALS: Ht 180.3 cm; Wt 104.0 kg
[2023-08-28 03:34] VITALS: O2SAT 100
[2023-08-28 05:51] LABS: BASOPHILS % 0.9 % (0.0-2.0); HEMATOCRIT. 33.8 % (36.0-48.0); HEMOGLOBIN. 11.2 g/dL (12.0-16.0); LYMPHOCYTES % 23.3 % (20.0-50.0); MEAN CORPUSCULAR HEMOGLOBIN 22.9 pg (28.0-32.0); MEAN CORPUSCULAR HGB CONC 33.1 g/dL (31.0-37.0); MEAN CORPUSCULAR VOLUME 69.2 fL (81.0-99.0); MEAN PLATELET VOLUME 9.2 fl (7.4-10.4); MONOCYTES % 5.1 % (2.0-8.0); NEUTROPHILS % 69.7 % (40.0-76.0); PLATELET 352 x1000/uL (130-400); RED BLOOD CELL COUNT 4.88 mill/uL (4.2-5.4); RED CELL DISTRIBUTION WIDTH 22.6 % (11.6-14.6); WHITE BLOOD COUNT 15.2 x1000/uL (4.5-11.0)
[2023-08-28 05:57] LABS: CHLORIDE 104 mEq/L (98-107); POTASSIUM 4.1 mEq/L (3.5-5.1); SODIUM 139 mEq/L (136-145)
[2023-08-28 05:58] LABS: ADD RBC MORPHOLOGY YES; CARBON DIOXIDE 28 mEq/L (21-32); DIFFERENTIAL COMMENT 1
[2023-08-28 05:59] LABS: CALCIUM 9.7 mg/dL (8.7-10.4)
[2023-08-28 06:03] LABS: CREATININE 0.8 mg/dL (0.6-1.0); GLUCOSE 118 mg/dL (70-105)
[2023-08-28 06:04] LABS: UREA NITROGEN BLOOD 10 mg/dL (9-23)
[2023-08-28] MEDS: CARBAMIDE PEROXIDE 6.5% OTIC SOLN 15ML RIGHT EAR ONE (07:58)
[2023-08-28 08:35] VITALS: BP 115/81; PULSE 85; RESP 18; TEMP 98.5
[2023-08-28 11:22] LABS: HYPOCHROMASIA 2+
[2023-08-28 11:23] LABS: ANISOCYTOSIS 2+
[2023-08-28 11:24] LABS: TARGET CELLS 2+
[2023-08-28 11:25] LABS: PLATELET ESTIMATE NORMAL
== END 2023-08-28 08:46 | disposition home or self-care (01) ==
LOC: ER 03:24
DX: H61.21 Impacted cerumen, right ear (principal)
CPT/HCPCS: 36415; 80048; 85025; 86038; 99282; 99283

== ENCOUNTER 2023-09-13 18:57 | Emergency (ER) | payer MEDICAID, OTHER ==
[~2023-09-13] VITALS: Ht 180.3 cm; Wt 99.8 kg
[2023-09-13 19:04] VITALS: PULSE 116
[2023-09-13 19:09] VITALS: BP 131/75; RESP 16; TEMP 98.4; O2SAT 100
[2023-09-13 23:43] LABS: BASOPHILS % 0.5 % (0.0-2.0); EOSINOPHILS % 1.4 % (0.0-5.0); HEMATOCRIT. 32.1 % (36.0-48.0); HEMOGLOBIN. 10.3 g/dL (12.0-16.0); LYMPHOCYTES % 23.2 % (20.0-50.0); MEAN CORPUSCULAR HEMOGLOBIN 22.4 pg (28.0-32.0); MEAN CORPUSCULAR HGB CONC 32.2 g/dL (31.0-37.0); MEAN CORPUSCULAR VOLUME 69.6 fL (81.0-99.0); MEAN PLATELET VOLUME 9.1 fl (7.4-10.4); MONOCYTES % 5.1 % (2.0-8.0); NEUTROPHILS % 69.8 % (40.0-76.0); PLATELET 330 x1000/uL (130-400); RED BLOOD CELL COUNT 4.61 mill/uL (4.2-5.4); WHITE BLOOD COUNT 15.5 x1000/uL (4.5-11.0)
[2023-09-13 23:49] LABS: CARBON DIOXIDE 27 mEq/L (21-32); CHLORIDE 103 mEq/L (98-107); DIFFERENTIAL COMMENT 1; POTASSIUM 3.4 mEq/L (3.5-5.1); SODIUM 140 mEq/L (136-145)
[2023-09-13 23:50] LABS: CALCIUM 9.2 mg/dL (8.7-10.4)
[2023-09-13 23:55] LABS: CREATININE 0.8 mg/dL (0.6-1.0); GLUCOSE 103 mg/dL (70-105); UREA NITROGEN BLOOD 10 mg/dL (9-23)
[2023-09-13 23:56] LABS: ALANINE AMINOTRANSFERASE < 7 IU/L (10-49); ALBUMIN 4.2 g/dL (3.2-4.8); ASPARTATE AMINOTRANSFERASE 11 IU/L (<34)
[2023-09-13 23:57] LABS: BILIRUBIN TOTAL 0.3 mg/dL (0.1-1.0); PROTEIN TOTAL 7.2 g/dL (6.0-8.3)
[2023-09-14] LABS: T4 FREE 1.13 ng/dL (0.89-1.76)
[2023-09-14 00:01] LABS: THYROID STIMULATING HORMONE 2.87 uIU/mL (0.55-4.78); TROPONIN I HIGH SENSITIVITY < 4 ng/L (3.0-34)
[2023-09-14] MEDS ORDERED: POTASSIUM CHLORIDE 20MEQ/PACKET PO ONE (01:00)
== END 2023-09-14 03:23 | disposition home or self-care (01) ==
LOC: ER 18:57
DX: R00.2 Palpitations (principal); E87.8 Other disorders of electrolyte and fluid balance, not elsewhere classified; D64.9 Anemia, unspecified; Z79.899 Other long term (current) drug therapy
CPT/HCPCS: 36415; 71045; 80053; 84439; 84443; 84484; 85025; 93005; 99285

== ENCOUNTER 2023-11-25 13:13 | Emergency (ER) | payer MEDICAID, OTHER ==
[~2023-11-25] VITALS: Ht 180.3 cm; Wt 113.0 kg
[2023-11-25 13:38] VITALS: BP_SYST 126; O2SAT 99
[2023-11-25 15:01] LABS: CLARITY URINE CLOUDY (CLEAR); COLOR URINE RED (YELLOW); GLUCOSE URINE NEGATIVE (NEGATIVE); KETONES URINE NEGATIVE (NEGATIVE); LEUKOCYTE ESTERASE URINE 1+ (NEGATIVE); NITRITE URINE NEGATIVE (NEGATIVE); OCCULT BLOOD URINE 3+ (NEGATIVE); PH URINE 5.5 (4.5-8.0); PROTEIN URINE 2+ (NEGATIVE); SPECIFIC GRAVITY URINE 1.019 (1.005-1.030); UROBILINOGEN URINE 0.2 E.U./dL (0.2-1.0)
[2023-11-25] MEDS: MAGNESIUM/ALUMINUM HYDROXIDE/SIMETHICONE 30ML UDC PO ONE (15:15)
[2023-11-25] MEDS: FAMOTIDINE 20MG TABLET PO ONE (15:15)
[2023-11-25 15:28] LABS: RBC URINE TNTC /hpf (0-2)
[2023-11-25 15:29] LABS: SQUAMOUS EPITHELIAL CELL URINE 1+ /lpf (RARE/1+)
[2023-11-25] MEDS: ONDANSETRON 4MG ODT PO ONE (15:30)
[2023-11-25 15:33] LABS: BACTERIA URINE 1+
[2023-11-25 15:40] LABS: BASOPHILS % 0.5 % (0.0-2.0); EOSINOPHILS % 1.3 % (0.0-5.0); HEMATOCRIT. 35.6 % (36.0-48.0); HEMOGLOBIN. 11.4 g/dL (12.0-16.0); LYMPHOCYTES % 21.9 % (20.0-50.0); MEAN CORPUSCULAR HEMOGLOBIN 21.9 pg (28.0-32.0); MEAN CORPUSCULAR HGB CONC 32.1 g/dL (31.0-37.0); MEAN CORPUSCULAR VOLUME 68.4 fL (81.0-99.0); MEAN PLATELET VOLUME 9.6 fl (7.4-10.4); MONOCYTES % 6.7 % (2.0-8.0); NEUTROPHILS % 69.6 % (40.0-76.0); PLATELET 393 x1000/uL (130-400); RED BLOOD CELL COUNT 5.21 mill/uL (4.2-5.4); RED CELL DISTRIBUTION WIDTH 18.4 % (11.6-14.6); WHITE BLOOD COUNT 13.3 x1000/uL (4.5-11.0)
[2023-11-25 15:42] LABS: ADD RBC MORPHOLOGY YES; DIFFERENTIAL COMMENT 1
[2023-11-25 15:46] LABS: CHLORIDE 104 mEq/L (98-107); SODIUM 137 mEq/L (136-145)
[2023-11-25 15:49] LABS: CALCIUM 10.2 mg/dL (8.7-10.4); CARBON DIOXIDE 27 mEq/L (21-32)
[2023-11-25 15:54] LABS: CREATININE 0.9 mg/dL (0.6-1.0); GLUCOSE 73 mg/dL (70-105); UREA NITROGEN BLOOD 8 mg/dL (9-23)
[2023-11-25 15:56] LABS: ALANINE AMINOTRANSFERASE < 7 IU/L (10-49); ALBUMIN 4.9 g/dL (3.2-4.8); ASPARTATE AMINOTRANSFERASE 12 IU/L (<34); BILIRUBIN DIRECT 0.1 mg/dL (<=3.0); BILIRUBIN TOTAL 0.4 mg/dL (0.1-1.0); HCG SCREEN NEGATIVE; PROTEIN TOTAL 8.5 g/dL (6.0-8.3)
[2023-11-25 16:07] LABS: TROPONIN I HIGH SENSITIVITY < 4 ng/L (3.0-34)
[2023-11-25 17:23] LABS: ANISOCYTOSIS 1+; HYPOCHROMASIA 2+; MICROCYTOSIS 3+; PLATELET ESTIMATE NORMAL
[2023-11-25] MEDS ORDERED: FAMO-135 PO (17:37)
[2023-11-25 17:46] VITALS: BP_DIAS 112; PULSE 70; RESP 15; TEMP 36.61404; O2SAT 99
== END 2023-11-25 17:49 | disposition home or self-care (01) ==
LOC: ER 13:13
DX: R10.10 Upper abdominal pain, unspecified (principal); R06.02 Shortness of breath; Z79.899 Other long term (current) drug therapy
CPT/HCPCS: 99285; 76705; 71045; 80076; 80048; 81003; 81025; 84703; 83690; 85025; 84484; 36415; 93005; Q0162

== ENCOUNTER 2024-01-31 14:55 | Emergency (ER) | payer MEDICAID ==
[~2024-01-31] VITALS: Ht 180.3 cm; Wt 111.1 kg
[~2024-01-31 14:55] MED LIST changes: +FAMO-135 PO
[2024-01-31 15:00] VITALS: TEMP 98; O2SAT 100
[2024-01-31] MEDS: KETOROLAC 30MG/ML VIAL IM ONE (16:31)
[2024-01-31 16:38] LABS: BASOPHILS % 0.3 % (0.0-2.0); DIFFERENTIAL COMMENT 1; HEMATOCRIT. 35.7 % (36.0-48.0); HEMOGLOBIN. 11.5 g/dL (12.0-16.0); LYMPHOCYTES % 18.8 % (20.0-50.0); MEAN CORPUSCULAR HGB CONC 32.3 g/dL (31.0-37.0); MEAN CORPUSCULAR VOLUME 68.2 fL (81.0-99.0); MEAN PLATELET VOLUME 9.5 fl (7.4-10.4); MONOCYTES % 6.9 % (2.0-8.0); PLATELET 361 x1000/uL (130-400); RED BLOOD CELL COUNT 5.24 mill/uL (4.2-5.4); RED CELL DISTRIBUTION WIDTH 18.1 % (11.6-14.6); WHITE BLOOD COUNT 16.2 x1000/uL (4.5-11.0)
[2024-01-31 16:39] LABS: ADD RBC MORPHOLOGY YES
[2024-01-31 16:54] LABS: TROPONIN I HIGH SENSITIVITY < 4 ng/L (3.0-34)
[2024-01-31 16:55] LABS: THYROID STIMULATING HORMONE 1.42 uIU/mL (0.55-4.78)
[2024-01-31 16:58] LABS: HCG SCREEN NEGATIVE
[2024-01-31 17:03] LABS: CARBON DIOXIDE 24 mEq/L (21-32); CHLORIDE 106 mEq/L (98-107); POTASSIUM 3.7 mEq/L (3.5-5.1); SODIUM 138 mEq/L (136-145)
[2024-01-31 17:04] LABS: CALCIUM 9.9 mg/dL (8.7-10.4)
[2024-01-31 17:09] LABS: CREATININE 0.9 mg/dL (0.6-1.0); GLUCOSE 104 mg/dL (70-105); UREA NITROGEN BLOOD 7 mg/dL (9-23)
[2024-01-31] MEDS ORDERED: IBUP-2028 MT (17:22)
[2024-01-31 17:26] VITALS: BP 118/78; PULSE 97; RESP 16; O2SAT 100
[2024-01-31 18:37] LABS: ANISOCYTOSIS 1+; HYPOCHROMASIA 1+; MICROCYTOSIS 3+; PLATELET ESTIMATE NORMAL
== END 2024-01-31 17:55 | disposition home or self-care (01) ==
LOC: ER 14:55
DX: R07.89 Other chest pain (principal); M54.2 Cervicalgia; Z79.899 Other long term (current) drug therapy
CPT/HCPCS: 80048; 84703; 83880; 84443; 85025; 85379; 84484; 36415; 71045; 93005; 96372; 99285; J1885; Z7610

== ENCOUNTER 2024-11-29 15:56 | Emergency (ER) | payer MEDICAID, OTHER ==
[~2024-11-29] VITALS: Ht 180.3 cm; Wt 109.0 kg
[~2024-11-29 15:56] MED LIST changes: +IBUP-1455 MT; -IBUP-2029 MT
[2024-11-29 16:01] VITALS: O2SAT 100
[2024-11-29 16:08] VITALS: TEMP 36.9; O2SAT 100
[2024-11-29 17:38] VITALS: PULSE 111
[2024-11-29] MEDS: KETOROLAC 30MG/ML VIAL IM ONE (17:38)
[2024-11-29 17:39] VITALS: BP 146/99; RESP 16
[2024-11-29] MEDS: LIDOCAINE 5% PATCH TOP SCH (17:39)
[2024-11-29] MEDS ORDERED: LIDO-53 TP (17:57)
[2024-11-29] MEDS ORDERED: ACET-2708 MT (17:57)
== END 2024-11-29 18:20 | disposition home or self-care (01) ==
LOC: ER 15:56
DX: M25.512 Pain in left shoulder (principal); Z79.51 Long term (current) use of inhaled steroids; Z79.899 Other long term (current) drug therapy
CPT/HCPCS: 99283; 81025; 73030; 96372; J1885

== ENCOUNTER 2024-12-02 15:29 | Emergency (ER) | payer OTHER ==
[~2024-12-02] VITALS: Ht 177.8 cm; Wt 110.0 kg
[~2024-12-02 15:29] MED LIST changes: +ACET-2708 MT; +LIDO-53 TP
[2024-12-02 15:32] VITALS: O2SAT 99
[2024-12-02] MEDS: SODIUM CHLORIDE 0.9% 1,000 ML IV ONE (16:06)
[2024-12-02 16:31] LABS: BASOPHILS % 0.6 % (0.0-2.0); EOSINOPHILS % 1.0 % (0.0-5.0); HEMATOCRIT. 32.0 % (36.0-48.0); HEMOGLOBIN. 10.2 g/dL (12.0-16.0); LYMPHOCYTES % 21.4 % (20.0-50.0); MEAN PLATELET VOLUME 9.8 fl (7.4-10.4); MONOCYTES % 5.3 % (2.0-8.0); NEUTROPHILS % 71.7 % (40.0-76.0); PLATELET 346 x1000/uL (130-400); RED BLOOD CELL COUNT 5.36 mill/uL (4.2-5.4); RED CELL DISTRIBUTION WIDTH 21.1 % (11.6-14.6)
[2024-12-02 16:33] LABS: ADD RBC MORPHOLOGY YES
[2024-12-02 16:42] LABS: INR 1.0
[2024-12-02 16:50] LABS: CREATININE 0.9 mg/dL (0.6-1.0); TROPONIN I HIGH SENSITIVITY < 4 ng/L (3.0-34); UREA NITROGEN BLOOD < 5 mg/dL (9-23)
[2024-12-02 16:51] LABS: ASPARTATE AMINOTRANSFERASE 9 IU/L (<34); B-HCG QUANTITATIVE < 1 mIU/mL (<6)
[2024-12-02 16:52] LABS: BILIRUBIN DIRECT 0.2 mg/dL (<=3.0); BILIRUBIN TOTAL 0.5 mg/dL (0.1-1.0); PROTEIN TOTAL 8.4 g/dL (6.0-8.3)
[2024-12-02 16:54] LABS: PLATELET ESTIMATE NORMAL
[2024-12-02 19:29] VITALS: BP 115/79; PULSE 90; RESP 19; TEMP 36.9; O2SAT 96
== END 2024-12-02 19:33 | disposition home or self-care (01) ==
LOC: ER 15:29 → CANBEDREQ 17:41 → ER 19:33
DX: R00.0 Tachycardia, unspecified (principal); D64.9 Anemia, unspecified; R10.2 Pelvic and perineal pain; R06.02 Shortness of breath; Z79.899 Other long term (current) drug therapy; Z98.890 Other specified postprocedural states
CPT/HCPCS: 80076; 80048; 84702; 83880; 83690; 85025; 85379; 85610; 85730; 86850; 86900; 86901; 84484; 36415; 71045; 93005; 99285; J7030; Z7610; A4606